=== PATIENT | female | born 1995 | race Caucasian/White ===

== ENCOUNTER 2021-11-01 00:02 | Emergency (ER) | payer OTHER ==
[2021-11-01 00:50] LABS: BASOPHIL 0.4 % (0-2); EOSINOPHIL 0.9 % (0-5); HCT 42.4 % (37.0-47.0); HGB 13.4 g/dl (12.5-16.0); LYMPHOCYTE 40.7 % (15-48); MCH 25.6 pg (25.0-31.0); MCHC 31.6 g/dL (32.0-36.0); MCV 80.9 fL (78.0-100.0); MPV 9.8 fL (6.0-9.5); NEUTROPHIL 50.7 % (41-80); NRBC 0; PLT 344 K/uL (150-400); RBC 5.24 M/uL (4.20-5.40); RDW 13.1 % (11.5-14.0); WBC 10.8 K/uL (4.0-10.5)
[2021-11-01] MEDS ORDERED: RIZATRIPTAN10 M1 PO (00:56)
[2021-11-01 01:10] LABS: BILIRUBIN - TOTAL 0.3 mg/dL (0.2-1.0); BUN/CREAT RATIO (CALC) 14.3 RATIO; CREATININE 0.84 mg/dL (0.51-0.95); GLOBULIN (CALCULATION) 3.7 g/dL; POTASSIUM 3.9 mmol/L (3.5-5.1); TOTAL PROTEIN 7.7 g/dL (6.4-8.2)
== END 2021-11-01 02:40 | disposition home or self-care (01) ==
LOC: FER 00:02
PROVIDERS: Internal Medicine
DX: G44.009 Cluster headache syndrome, unspecified, not intractable (principal); Z28.310 Unvaccinated for COVID-19
CPT/HCPCS: 36415; 80053; 85025; 96372; J1100; J1885; J2765; J3030; J3475; J7030